=== PATIENT | female | born 1985 | race Caucasian/White ===

== ENCOUNTER 2018-09-28 10:11 | Emergency (ER) | payer OTHER ==
[2018-09-28] MEDS: IBUPROFEN 600 MG TAB PO (10:40)
[2018-09-28] MEDS: predniSONE 20 MG TAB PO (10:40)
== END 2018-09-28 11:22 | disposition home or self-care (01) ==
LOC: FTE 10:11
DX: J02.9 Acute pharyngitis, unspecified (principal)
CPT/HCPCS: 87880; 99283